=== PATIENT | female | born 2000 | race Caucasian/White ===

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

== ENCOUNTER 2024-08-28 13:45 | Outpatient (CLI) | payer OTHER, SELFPAY ==
--- NOTE | ~2024-08-28 | MR_ITS ---
MRI of the brain Clinical History: Memory loss Technique: Axial and sagittal T1-weighted images were acquired. These were followed by axial T2-weigh ronda, diffusion weighted, gradient, and FLAIR images. Findings: No abnormal signal seen in the brain parenchyma. No acute infarct, intracranial hemorrhage, or mass lesion. Ventricles and subarachnoid spaces are unremarkable. Orbits are unremarkable. Paranasal sinuses and m astoid air cells are clear. Major intracranial flow voids are intact. Sagittal midline structures are intact. IMPRESSION: Normal exam. Reviewed, dictated and finalized at location M. IMPRESSION: Normal exam.
== END 2024-08-28 13:46 | disposition home or self-care (01) ==
LOC: GOSHIMG 13:46
DX: R41.3 Other amnesia (principal)
CPT/HCPCS: 70551